=== PATIENT | female | born 1960 | race Caucasian/White ===

== ENCOUNTER → 2022-12-06 14:18 | Outpatient (BNVA) | payer MEDICAID, SELFPAY | PROVIDERS: PCP Internal Medicine; Visit Provider Anesthesiology | DX: M96.1 Postlaminectomy syndrome, not elsewhere classified (principal); M46.1 Sacroiliitis, not elsewhere classified; M53.3 Sacrococcygeal disorders, not elsewhere classified; G57.00 Lesion of sciatic nerve, unspecified lower limb; G89.29 Other chronic pain | CPT/HCPCS: 99202 ==

== ENCOUNTER 2022-12-26 06:04 | Outpatient (REF) | payer MEDICAID, SELFPAY ==
--- NOTE | ~2022-12-26 | FL_ITS ---
EXAMINATION: XR FLUOROSCOPY WITH IMAGES CLINICAL INFORMATION: M53.3 - Sacrococcygeal disorders, not elsewhere classified COMPARISON: Administration TECHNIQUE: Fluoroscopy Supervised By: Dr. Steve Rogers. Fluoroscopy Time: 0.1 minutes. Cumulative Dose: 1.67 mGy. DAP: 0.03 Gycm2. Images: 1. FINDINGS: Spinal needle overlies mid to lower right SI joint. There is contrast in the periarticular soft tissues with probable early intra-articular contrast. FL/FL guidance in treatment room IMPRESSION: Fluoroscopy for pain management procedure.
== END 2022-12-26 06:05 | disposition home or self-care (01) ==
LOC: CF 06:04
PROVIDERS: Visit Provider Anesthesiology
DX: M53.3 Sacrococcygeal disorders, not elsewhere classified (principal); M96.1 Postlaminectomy syndrome, not elsewhere classified; M46.1 Sacroiliitis, not elsewhere classified
CPT/HCPCS: 27096

== ENCOUNTER → 2023-01-03 09:00 | Outpatient (BNVA) | payer MEDICAID, SELFPAY | PROVIDERS: PCP Internal Medicine; Visit Provider Anesthesiology ==

== ENCOUNTER 2023-08-22 09:16 | Outpatient (AMB) | payer MEDICAID, SELFPAY ==
--- NOTE | 2023-08-22 09:18 | A.OFFVIS_ITS ---
Intake Vital Signs 08/22/23 09:23 Height 5 ft 5 in Weight 177 lb 4 oz BMI 29.5 BP 142/82 H Blood Pressure Location Lt brachial Position Sitting Respiration 16 Pulse 64 Pulse Source Pulse Oximeter Pulse Oximetry (%) 97 Oxygen Delivery Method Room Air Intake Visit Reasons: Follow Up/Back Pain Intake Note: patient comes in for follow up. Allergies No Known Allergies Allergy (Verified 08/22/23 09:23) HPI HPI Comments History of Present Illness Details Almita is on the phone today after the diagnostic sacroiliac joint injection which was performed 7 months ago. 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 She reports that after physical exertion her pain became worse. She is very serious about sacroiliac joint stabilization with fusion pain tech on the right. She tried physical therapy in the past, she tried acute punctures. She also tried sacroiliac joint belt which helps her pain minimally and for short period of time. She tried NSAIDs and muscle relaxants which were not effective for her pain control. She had an MRI of the lumbar spine results of which are dictated as below. She did have CT of the pelvis, she did not have steroid injections. We agreed that I will schedule her for CT of the pelvis, I will also schedule her for intra-articular Dexamethasone steroid injections in the sacroiliac joint on the right. She had diagnostic sacroiliac joint injection on the right. She reports 9 hours of complete pain relief and sensation of numbness in the right buttock. She reports better mobility better activities of daily living better social interactions. We discussed 3 options of treatment of her sacroiliac joint pain on the right I offered her sacroiliac joint steroid injection versus sacroiliac joint fusion versus sacroiliac joint innervation stimulation. Prior: Very pleasant 62 years old female who presents in my office with complains on pain in the right buttock with radiation on the posterior surface of the right lower extremity to the posterior knee and posterior upper portion of the lower leg and sometimes all the way down to the ankle.? She reports that this pain started many years ago.? She denies any inciting events.? She was previously under care of neurosurgeon Dr. Mullins and for spinal stenosis she received L4- 5 fusion.? However her pain did not change after the fusion.? She was sent by neurosurgeon for evaluation and treatment.? The suggestion of neurosurgeon was that the patient's has right sacroiliitis and that is the cause of her pain.? She was a subject of multiple studies in the past.? There are dictations available for me of her MRI of the lumbar spine as well as MRI of the hip joint on the right.? Dictations are as below.? She was a subject of multiple sessions of physical therapy in the past.? She was taking NSAIDs.? Those modalities of treatment help her pain intermittently and do not alleviate the pain on the longer run. Review of Systems Const All systems reviewed & are unremarkable except as noted in HPI and below ENT Reports Normal hearing present Neuro Reports Normal hearing present, Denies Abnormal speech present and Denies Sensory deficit (Neuro) Physical Exam Const General: no acute distress Orientation/consciousness: patient oriented x3 Eyes General: appearance normal, both eyes and all related structures Pupils: Equal, round and reactive pupils present EOM: EOMs intact bilaterally Neck Neck: Yes full ROM Chest Chest palpation & inspection: normal inspection of the chest Resp Effort & Inspection: normal respiratory effort, able to speak in complete sentences, normal respiratory pattern, no audible wheezes and no cough Cardio Jugular venous distension: no JVD GI Inspection: Yes normal to inspection Back/Spine/Pelvis Other: Addy test positive on the right and negative on the left. Compression of the pelvis test positive on the right and negative on the left. Thigh thrust test is positive on the right. Gaenslen test is positive on the right. Fourteen finger test is positive on the right. SLR is negative on the left and equivocal on the right. Lassegue test is negative bilaterally Valsalva maneuver does not aggravate her pain. Neuro General: patient oriented x3 and gait normal Cranial nerves: Yes CN's II-XII intact bilaterally, Yes Equal, round and reactive pupils present, Yes Normal hearing present and Yes Ability to bilaterally elevate shoulders present Speech: No Abnormal speech present Gait exam (Neuro): Normal gait present Motor exam (neuro): 5/5 motor strength present throughout Sensory Exam: No Sensory deficit (Neuro) Extrem General: No pedal edema Psych Speech and movement: Normal speech and movement present Affect: normal affect Attitude: cooperative Thought process: Normal thought process present Thought content: Normal thought content present Insight: Good insight present (Psych) Judgement: Good judgement present (Psych) Results Reviewed Results Reviewed: MRI right hip 09/27/2021 findings: Labrum and cartilage the labrum is intact. The articular cartilage is unremarkable. Osseous structures: There is large subchondral cyst at the superior lateral labrum. No findings of acute fracture or AVN of the femoral head. There is no abnormal signal intensity within the ischial tuberosities just of lesion injury, the fovea is unremarkable. Muscles and tendons the pelvic musculature is well developed. The gluteal cuff is intact. The hamstring tendon origin is normal. The iliopsoas tendon is normal. There is abnormal T2 hyperintensity in the lateral up to rater externus in the region of quadratus femoris in the inferior gum male who is suggestive of muscle tear. Urinary bladder visualized bowel and iliac with cells are unremarkable. There is well-circumscribed hypodense mass within the lateral aspect of the uterus measured 9 x 1.3 cm consistent with fibroid the visualized rectum unremarkable. Impression: 1. Muscular injury to the up to retro externus inferior go male E and quadratus femoris. 2. Subchondral cyst formation in the superior lateral labrum. 3. No finding of AVN. MRI lumbar spine 05/16/2021. Findings for the purpose of this discussion the lowest well-formed interverteb ral disc space is assumed to be L5-S1 level, and there are presumed to be 5 lumbar type vertebral bodies. Patient is status post posterior fusion L4-5 with intervertebral disc spacer with solid anterior bony fusion. There is minimal scoliotic curvature convex to the left. There is minimal retrolisthesis of L1 on L2 and L2 on L3. Five lumbar-type vertebral bodies are present with normal vertebral body height and alignment. Bone marrow signal intensity is within normal limits. The vertebral body hemangioma within the T11 vertebral body. No acute fracture or focal inter osseous abnormality. Diffuse disc dislocation throughout the lumbar spine is present. Levels T11-L1 no disc herniation no canal or neural foraminal stenosis. L1-L2 disc desiccation in disc osteophyte complex in the subarticular space bilaterally. Mild facet arthrosis. Mild bilateral neural foraminal narrowing. No central canal stenosis. L2-L3: Disc desiccation. Mild annular bulge bilateral facet arthrosis and ligamentum flavum laxity. There are as lateral recess stenosis bilaterally mild effacement of the anterior thecal sac and moderate left neural foraminal narrowing with mild right neural foraminal narrowing. L3-L4 disc desiccation and loss of height with bilateral facet arthrosis right greater than left. Possible impact of exiting right L3 nerve root in the subarticular space. Right lateral recess stenosis with possible impingement on the traversing L4 nerve roots in the lateral recess. Moderate right and mild left neural foraminal narrowing. No canal stenosis. L4-5 patient is status post intervertebral disc spacer with osseous fusion and laminectomy. Susceptibility artifact from pedicle screws and goran fixation. No central canal stenosis. Moderate left neural foraminal narrowing. L5-S1: Moderate distortion due to significant motion. Ejection status post laminectomy there is bilateral facet arthrosis right greater than left. There is no central canal stenosis. No visualized neuroforaminal narrowing the visualized soft tissues are unremarkable. Assessment & Plan Assessment & Plan (1) Postlaminectomy syndrome of lumbar region: Code(s): M96.1 - Postlaminectomy syndrome, not elsewhere classified (2) Chronic pain syndrome: Code(s): G89.4 - Chronic pain syndrome (3) Sacroiliitis: Code(s): M46.1 - Sacroiliitis, not elsewhere classified (4) Piriformis syndrome: Code(s): G57.00 - Lesion of sciatic nerve, unspecified lower limb (5) Chronic right sacroiliac joint pain: Code(s): M53.3 - Sacrococcygeal disorders, not elsewhere classified; G89.29 - Other chronic pain (6) Sacroiliac joint dysfunction of right side: Code(s): M53.3 - Sacrococcygeal disorders, not elsewhere classified Plan This patient received great pain relief of 9 hours of complete pain alleviation after sacroiliac joint injection. She reported excellent mobility, very good social interactions, significant improvement of activities of daily living after the injection. She received ropivacaine 0.5% into sacroiliac joint. Ropivacaine acts only for 5 hours. She reported that her pain did not abruptly returned to the full strength after those 9 hours and she reported significant pain alleviation even few days after the injection. She is interested in painteq SI joint stabilization with fusion. In preparation for this procedure need to perform SI joint steroid injection, send her for CT scan of the bony pelvis. The diagnostic studies of lumbar spine and bilateral hips were performed in the past. She tried multiple therapeutic modalities including bracing with sacroiliac joint belt NSAIDs and muscle relaxants, acupuncture, activity modifications. Her pain is unilateral and caudal to the lumbar spine. She does not suffer from fibromyalgia. She is psychologically stable. Orders: Orders CT bony pelvis Today G89.29 - Other chronic pain, M46.1 - Sacroiliitis, not elsewhere classified, M53.3 - Sacrococcygeal disorders, not elsewhere classified Coding Level of Care Code Est Pt Level 3 (98141) Diagnoses Postlaminectomy syndrome of lumbar region M96.1 Chronic pain syndrome G89.4 Sacroiliitis M46.1 Piriformis syndrome G57.00 Chronic right sacroiliac joint pain M53.3; G89.29 Sacroiliac joint dysfunction of right side M53.3
[2023-08-22 09:23] VITALS: BP 142/82; PULSE 64; RESP 16; O2SAT 97; BMI 29.5
== END 2023-08-22 09:35 | disposition home or self-care (01) ==
PROVIDERS: PCP Internal Medicine; Visit Provider Anesthesiology
DX: M96.1 Postlaminectomy syndrome, not elsewhere classified (principal); G89.4 Chronic pain syndrome; M46.1 Sacroiliitis, not elsewhere classified; G57.00 Lesion of sciatic nerve, unspecified lower limb; M53.3 Sacrococcygeal disorders, not elsewhere classified; G89.29 Other chronic pain
CPT/HCPCS: 99213

== ENCOUNTER → 2023-08-22 09:16 | Outpatient (BNVA) | payer MEDICAID, SELFPAY | PROVIDERS: PCP Internal Medicine; Visit Provider Anesthesiology | DX: M96.1 Postlaminectomy syndrome, not elsewhere classified (principal); M46.1 Sacroiliitis, not elsewhere classified; M53.3 Sacrococcygeal disorders, not elsewhere classified; G89.29 Other chronic pain; G57.00 Lesion of sciatic nerve, unspecified lower limb | CPT/HCPCS: 99212 ==

== ENCOUNTER 2023-09-11 06:16 | Outpatient (REF) | payer MEDICAID, SELFPAY ==
--- NOTE | ~2023-09-11 | FL_ITS ---
INDICATION: Intraoperative fluoroscopy. FLUOROSCOPY: Fluoroscopy Time: 13.3 seconds Dose/air kerma: 5.6 mGy FINDINGS: Multiple intraoperative fluoroscopic images are submitted during right pelvic injection. Correlation with operative report. Evaluation is limited secondary to fluoroscopic technique. IMPRESSION: Intra-operative fluoroscopic imaging provided by radiology during right pelvic injection. Please refer to operative note for further information.
== END 2023-09-11 06:17 | disposition home or self-care (01) ==
LOC: CF 06:16
PROVIDERS: Visit Provider Anesthesiology
DX: M53.3 Sacrococcygeal disorders, not elsewhere classified (principal); M96.1 Postlaminectomy syndrome, not elsewhere classified; M46.1 Sacroiliitis, not elsewhere classified; G57.00 Lesion of sciatic nerve, unspecified lower limb
CPT/HCPCS: 27096; J1100; J2795; Q9967

== ENCOUNTER 2023-09-11 12:53 | Outpatient (AMB) | payer MEDICAID, SELFPAY ==
--- NOTE | 2023-09-11 13:02 | A.OFFVIS_ITS ---
Intake Vital Signs 09/11/23 14:30 09/11/23 14:31 Height 5 ft 5 in 5 ft 5 in Weight 177 lb 177 lb BMI 29.5 29.5 BP 122/74 110/74 Blood Pressure Location Lt brachial Lt brachial Position Sitting Sitting Respiration 14 14 Pulse 73 60 Pulse Source Pulse Oximeter Pulse Oximeter Pulse Oximetry (%) 96 97 Oxygen Delivery Method Room Air Room Air Comment pre-op post-op Intake Visit Reasons: RIGHT THERAPEUTIC SIJ INJECTION W/DEXA Allergies No Known Allergies Allergy (Verified 09/11/23 14:32) Physical Exam Vital Signs: Last Vital Signs Pulse 60 09/11/23 14:31 Resp 14 09/11/23 14:31 BP 110/74 09/11/23 14:31 Pulse Ox 97 09/11/23 14:31 Oxygen Delivery Method Room Air 09/11/23 14:31 BMI result Body Mass Index 29.5 Assessment & Plan Assessment & Plan (1) Postlaminectomy syndrome of lumbar region: Code(s): M96.1 - Postlaminectomy syndrome, not elsewhere classified (2) Chronic pain syndrome: Code(s): G89.4 - Chronic pain syndrome (3) Sacroiliitis: Code(s): M46.1 - Sacroiliitis, not elsewhere classified (4) Piriformis syndrome: Code(s): G57.00 - Lesion of sciatic nerve, unspecified lower limb (5) Chronic right sacroiliac joint pain: Code(s): M53.3 - Sacrococcygeal disorders, not elsewhere classified; G89.29 - Other chronic pain Plan: Right therapeutic sacroiliac joint injection. Informed consent was explained thoroughly to the patient. All questions about benefits and risks for the procedure were answered. Patient came to the operating room and was positioned prone on the operating table with the pillow under the pelvis. Time out was performed delineating name and of the patient, allergies and the nature of the procedure. The lower back and buttocks of the patient were prepped with ChloraPrep prepped and draped with sterile utility towels. C-arm was brought over the operating field and sq picture of patient's pelvis was demonstrated on the screen. For the right joint tilting C-arm contralateral to the site of the joint the most posterior portion of the joints was superimposed with anterior silhouette of the joint. Skin was injected in the projection of the joint slightly medial to the location of the joint with 25 gauge 1/2 inch needle using local lidocaine 2% .After that 22 gauge 3 and 1/2 inch needle was driven to the right joint in tunnel vision fashion. When needle entered the joint capsule injection of the contrast was performed demonstrating intra-articular and minimally periarticular spread of the contrast. After that 4 cc. of ropivacaine 0.5% mixed with De xamethasone 10 mg was injected into the joint. Upon completion of the injections the needle was removed Sterile dressing was applied. Upon completion of the injection patient was taken outside of the operating room to the recovery room where recovered uneventfully. (6) Sacroiliac joint dysfunction of right side: Code(s): M53.3 - Sacrococcygeal disorders, not elsewhere classified Plan This patient received great pain relief of 9 hours of complete pain alleviation after sacroiliac joint injection. She reported excellent mobility, very good social interactions, significant improvement of activities of daily living after the injection. She received ropivacaine 0.5% into sacroiliac joint. Ropiva mateo acts only for 5 hours. She reported that her pain did not abruptly returned to the full strength after those 9 hours and she reported significant pain alleviation even few days after the injection. She is interested in painteq SI joint stabilization with fusion. In preparation for this procedure need to perform SI joint steroid injection, send her for CT scan of the bony pelvis. The diagnostic studies of lumbar spine and bilateral hips were performed in the past. She tried multiple therapeutic modalities including bracing with sacroiliac joint belt NSAIDs and muscle relaxants, acupuncture, activity modifications. Her pain is unilateral and caudal to the lumbar spine. She does not suffer from fibromyalgia. She is psychologically stable. Orders: Orders FL guidance in treatment room Today M53.3 - Sacrococcygeal disorders, not elsewhere classified Coding Level of Care Code Procedure Only Diagnoses Postlaminectomy syndrome of lumbar region M96.1 Chronic pain syndrome G89.4 Sacroiliitis M46.1 Piriformis syndrome G57.00 Chronic right sacroiliac joint pain M53.3; G89.29 Sacroiliac joint dysfunction of right side M53.3
[2023-09-11 14:30] VITALS: BP 122/74; PULSE 73; RESP 14; O2SAT 96; BMI 29.5
[2023-09-11 14:31] VITALS: BP 110/74; PULSE 60; RESP 14; O2SAT 97; BMI 29.5
== END 2023-09-11 13:58 | disposition home or self-care (01) ==
LOC: HO.PMCPRC 12:53
PROVIDERS: PCP Internal Medicine; Referring Provider Internal Medicine; Visit Provider Anesthesiology
DX: M46.1 Sacroiliitis, not elsewhere classified (principal); M53.3 Sacrococcygeal disorders, not elsewhere classified
CPT/HCPCS: 27096

== ENCOUNTER 2023-09-26 13:35 | Outpatient (REF) | payer MEDICAID, SELFPAY ==
--- NOTE | ~2023-09-26 | CT_ITS ---
EXAMINATION: CT PELVIS WITHOUT CONTRAST CLINICAL INFORMATION: Sacrococcygeal disorders. COMPARISON: None available. TECHNIQUE: Helical scanning was performed with submillimeter collimation through the pelvis. Sagittal and coronal multiplanar 2-D reconstructions were obtained. This CT examination was performed using dose optimization techniques as appropriate, variously including the following: *Automated exposure control *Adjustment of mA and/or kV according to patient size (this includes techniques or standardized protocols for targeted exams where dose is matched to indication/reason for exam; i.e. extremities or head) *Use of iterative reconstruction technique DLP: 582 mGy-cm FINDINGS: PELVIS: Sigmoid diverticulosis without evidence of acute diverticulitis. The visualized intrapelvic structures are otherwise unremarkable. No pelvic wall hernia. Varicosities within the anteroinferior subcutaneous tissues. OSSEOUS STRUCTURES: Mild bilateral sacroiliac joint space narrowing with small marginal osteophytes and subchondral sclerosis. Small amount of air within the bilateral sacroiliac joints. No large periarticular erosion. No acute fracture or dislocation. No femoral head avascular necrosis. Mild bilateral hip joint space narrowing with small marginal osteophytes. Prominent subchondral cystic change within the right acetabulum. Mild degenerative arthritis within the symphysis pubis. Partially visualized postsurgical change within the lower lumbar spine including laminectomy and posterior stabilization hardware. Bone graft donor site within the right iliac. CT/CT bony pelvis IMPRESSION: 1. Mild bilateral sacroiliac osteoarthritis. No large periarticular erosion. 2. Mild bilateral hip osteoarthritis, right greater than left. 3. Sigmoid diverticulosis without evidence of acute diverticulitis.
== END 2023-09-26 13:36 | disposition home or self-care (01) ==
LOC: HO.CT 13:35
PROVIDERS: PCP Internal Medicine; Visit Provider Anesthesiology
DX: M53.3 Sacrococcygeal disorders, not elsewhere classified (principal); M46.1 Sacroiliitis, not elsewhere classified; G89.29 Other chronic pain
CPT/HCPCS: 72192

== ENCOUNTER 2023-10-08 12:28 | Outpatient (AMB) | payer MEDICAID, SELFPAY ==
--- NOTE | 2023-10-08 12:57 | A.OFFVIS_ITS ---
Intake Vital Signs 10/08/23 13:06 Height 5 ft 5 in Weight 177 lb BMI 29.5 BP 128/84 Blood Pressure Location Lt brachial Position Sitting Respiration 16 Pulse 64 Pulse Source Pulse Oximeter Pulse Oximetry (%) 98 Oxygen Delivery Method Room Air Intake Visit Reasons: RIGHT THERAPEUTIC SIJ INJECTION/09/11/23 Intake Note: Patient comes in for post-op appointment. Reports pain 10. Allergies No Known Allergies Allergy (Verified 10/08/23 13:05) HPI HPI Comments History of Present Illness Details Almita is in my office today after therapeutic sacroiliac joint injection. It looks like that this injection did not help at all this patient's pain in the projection of the right buttock. Originally we were thinking about performing sacroiliac joint fusion because the patient had 9 hours of complete pain relief after diagnostic sacroiliac joint injection to the right. Unfortunately now with no results of therapeutic SI joint injection I can not schedule her for the SI joint fusion. I will consider some other injections 1 she will bring me with results of injections with prior physicians many years ago. Prior: Very pleasant 62 years old female who presents in my office with complains on pain in the right buttock with radiation on the posterior surface of the right lower extremity to the posterior knee and posterior upper portion of the lower leg and sometimes all the way down to the ankle.? She reports that this pain started many years ago.? She denies any inciting events.? She was previously under care of neurosurgeon Dr. Mullins and for spinal stenosis she received L4- 5 fusion.? However her pain did not change after the fusion.? She was sent by neurosurgeon for evaluation and treatment.? The suggestion of neurosurgeon was that the patient's has right sacroiliitis and that is the cause of her pain.? She was a subject of multiple studies in the past.? There are dictations available for me of her MRI of the lumbar spine as well as MRI of the hip joint on the right.? Dictations are as below.? She was a subject of multiple sessions of physical therapy in the past.? She was taking NSAIDs.? Those modalities of treatment help her pain intermittently and do not alleviate the pain on the longer run. Review of Systems Const All systems reviewed & are unremarkable except as noted in HPI and below ENT Reports Normal hearing present Neuro Reports Normal hearing present, Denies Abnormal speech present and Denies Sensory deficit (Neuro) Physical Exam Vital Signs: Last Vital Signs Pulse 64 10/08/23 13:06 Resp 16 10/08/23 13:06 BP 128/84 10/08/23 13:06 Pulse Ox 98 10/08/23 13:06 Oxygen Delivery Method Room Air 10/08/23 13:06 BMI result Body Mass Index 29.5 Const General: no acute distress Orientation/consciousness: patient oriented x3 Eyes General: appearance normal, both eyes and all related structures Pupils: Equal, round and reactive pupils present EOM: EOMs intact bilaterally Neck Neck: Yes full ROM Chest Chest palpation & inspection: normal inspection of the chest Resp Effort & Inspection: normal respiratory effort, able to speak in complete sentences, normal respiratory pattern, no audible wheezes and no cough Cardio Jugular venous distension: no JVD GI Inspection: Yes normal to inspection Back/Spine/Pelvis Other: Addy test positive on the right and negative on the left. Compression of the pelvis test positive on the right and negative on the left. Thigh thrust test is positive on the right. Gaenslen test is positive on the right. Fourteen finger test is positive on the right. SLR is negative on the left and equivocal on the right. Lassegue test is negative bilaterally Valsalva maneuver does not aggravate her pain. Neuro General: patient oriented x3 and gait normal Cranial nerves: Yes CN's II-XII intact bilaterally, Yes Equal, round and reactive pupils present, Yes Normal hearing present and Yes Ability to bilaterally elevate shoulders present Speech: No Abnormal speech present Gait exam (Neuro): Normal gait present Motor exam (neuro): 5/5 motor strength present throughout Sensory Exam: No Sensory deficit (Neuro) Extrem General: No pedal edema Psych Speech and movement: Normal speech and movement present Affect: normal affect Attitude: cooperative Thought process: Normal thought process present Thought content: Normal thought content present Insight: Good insight present (Psych) Judgement: Good judgement present (Psych) Results Reviewed Results Reviewed: MRI right hip 09/27/2021 findings: Labrum and cartilage the labrum is intact. The articular cartilage is unremarkable. Osseous structures: There is large subchondral cyst at the superior lateral labrum. No findings of acute fracture or AVN of the femoral head. There is no abnormal signal intensity within the ischial tuberosities just of lesion injury, the fovea is unremarkable. Muscles and tendons the pelvic musculature is well developed. The gluteal cuff is intact. The hamstring tendon origin is normal. The iliopsoas tendon is normal. There is abnormal T2 hyperintensity in the lateral up to rater externus in the region of quadratus femoris in the inferior gum male who is suggestive of muscle tear. Urinary bladder visualized bowel and iliac with cells are u nremarkable. There is well-circumscribed hypodense mass within the lateral aspect of the uterus measured 9 x 1.3 cm consistent with fibroid the visualized rectum unremarkable. Impression: 1. Muscular injury to the up to retro externus inferior go male E and quadratus femoris. 2. Subchondral cyst formation in the superior lateral labrum. 3. No finding of AVN. MRI lumbar spine 05/16/2021. Findings for the purpose of this discussion the lowest well-formed intervertebral disc space is assumed to be L5-S1 level, and there are presumed to be 5 lumbar type vertebral bodies. Patient is status post posterior fusion L4-5 with intervertebral disc spacer with solid anterior bony fusion. There is minimal scoliotic curvature convex to the left. There is minimal retrolisthesis of L1 on L2 and L2 on L3. Five lumbar-type vertebral bodies are present with normal vertebral body height and alignment. Bone marrow signal intensity is within normal limits. The vertebral body hemangioma within the T11 vertebral body. No acute fracture or focal inter osseous abnormality. Diffuse disc dislocation throughout the lumbar spine is present. Levels T11-L1 no disc herniation no canal or neural foraminal stenosis. L1-L2 disc desiccation in disc osteophyte complex in the subarticular space bilaterally. Mild facet arthrosis. Mild bilateral neural foraminal narrowing. No central canal stenosis. L2-L3: Disc desiccation. Mild annular bulge bilateral facet arthrosis and ligamentum flavum laxity. There are as lateral recess stenosis bilaterally mild effacement of the anterior thecal sac and moderate left neural foraminal narrowing with mild right neural foraminal narrowing. L3-L4 disc desiccation and loss of height with bilateral facet arthrosis right greater than left. Possible impact of exiting right L3 nerve root in the subarticular space. Right lateral recess stenosis with possible impingement on the traversing L4 nerve roots in the lateral recess. Moderate right and mild left neural foraminal narrowing. No canal stenosis. L4-5 patient is status post intervertebral disc spacer with osseous fusion and laminectomy. Susceptibility artifact from pedicle screws and goran fixation. No central canal stenosis. Moderate left neural foraminal narrowing. L5-S1: Moderate distortion due to significant motion. Ejection status post laminectomy there is bilateral facet arthrosis right greater than left. There is no central canal stenosis. No visualized neuroforaminal narrowing the visualized soft tissues are unremarkable. Assessment & Plan Assessment & Plan (1) Postlaminectomy syndrome of lumbar region: Code(s): M96.1 - Postlaminectomy syndrome, not elsewhere classified Plan: (2) Chronic pain syndrome: Code(s): G89.4 - Chronic pain syndrome Plan: (3) Sacroiliitis: Code(s): M46.1 - Sacroiliitis, not elsewhere classified Plan: (4) Piriformis syndrome: Code(s): G57.00 - Lesion of sciatic nerve, unspecified lower limb Plan: (5) Chronic right sacroiliac joint pain: Code(s): M53.3 - Sacrococcygeal disorders, not elsewhere classified; G89.29 - Other chronic pain Plan: The patient reported that she did not have any pain relieve on therapeutic sacroiliac joint injection. Therefore sacroiliac joint fusion is not possible for her. We need to return to the issue of the pain in the back and perform thumbs some other injections to properly treat this patient. She had injections in the past which did not help her and she promised me to bring the reports from that injections. After that I will schedule injections which in my opinion could be effective for this patient based on her reports and on MRI. (6) Sacroiliac joint dysfunction of right side: Code(s): M53.3 - Sacrococcygeal disorders, not elsewhere classified Plan: Coding Level of Care Code Est Pt Level 3 (59466) Diagnoses Postlaminectomy syndrome of lumbar region M96.1 Chronic pain syndrome G89.4 Sacroiliitis M46.1 Piriformis syndrome G57.00 Chronic right sacroiliac joint pain M53.3; G89.29 Sacroiliac joint dysfunction of right side M53.3
[2023-10-08 13:06] VITALS: BP 128/84; PULSE 64; RESP 16; O2SAT 98; BMI 29.5
== END 2023-10-08 13:33 | disposition home or self-care (01) ==
PROVIDERS: PCP Internal Medicine; Visit Provider Anesthesiology
DX: M96.1 Postlaminectomy syndrome, not elsewhere classified (principal); G89.4 Chronic pain syndrome; M46.1 Sacroiliitis, not elsewhere classified; G57.00 Lesion of sciatic nerve, unspecified lower limb; M53.3 Sacrococcygeal disorders, not elsewhere classified; G89.29 Other chronic pain
CPT/HCPCS: 99213

== ENCOUNTER → 2023-10-08 12:28 | Outpatient (BNVA) | payer MEDICAID, SELFPAY | PROVIDERS: PCP Internal Medicine; Visit Provider Anesthesiology | DX: M96.1 Postlaminectomy syndrome, not elsewhere classified (principal); M46.1 Sacroiliitis, not elsewhere classified; M53.3 Sacrococcygeal disorders, not elsewhere classified; G57.00 Lesion of sciatic nerve, unspecified lower limb; G89.29 Other chronic pain | CPT/HCPCS: 99212 ==